=== PATIENT | female | born 1985 | race Two or more races ===

== ENCOUNTER 2019-11-13 12:09 | Emergency (ER) | payer MEDICAID ==
[~2019-11-13] VITALS: Ht 157.5 cm; Wt 86.6 kg
--- NOTE | 2019-11-13 12:26 | NUR ---
CAME IN FOR L EAR ACHE, HEAD FEELS "HOT." X 1 WEEK , TO ER BED 3, HOOKED TO MONITOR, WARM BLABKET PROVIDED, AWAITING MD DAVID
--- NOTE | 2019-11-13 12:38 | NUR ---
KIERA HASKINS AT BEDSIDE
--- NOTE | 2019-11-13 12:51 | NUR ---
URINE SAMPLE SENT TO LAB
[2019-11-13] MEDS ORDERED: ONDANSETRON 4 MG TAB.RAPDIS ONE (12:54)
[2019-11-13] MEDS ORDERED: ONDANSETRON 4 MG TAB.RAPDIS SL ONE (13:00)
[2019-11-13] MEDS ORDERED: KETOROLAC TROMETHAMINE INJ 60 MG/2 ML VIAL IM ONE (13:00)
[2019-11-13] MEDS ORDERED: KETOROLAC TROMETHAMINE INJ 30 MG/ML VIAL ONE (13:14)
--- NOTE | 2019-11-13 13:20 | NUR ---
Patient discharged to home in stable condition. Written and verbal after care instructions given. Patient verbalizes understanding of instruction.
[2019-11-13 13:32] VITALS: BP 138/68
== END 2019-11-13 13:33 | disposition home or self-care (01) ==
LOC: ER 12:09
DX: F28 Other psychotic disorder not due to a substance or known physiological condition (principal)
CPT/HCPCS: 84703; 96372; 99284; J1885; Q0162

== ENCOUNTER 2020-03-28 14:48 | Emergency (ER) | payer MEDICAID ==
[~2020-03-28] VITALS: Ht 152.4 cm; Wt 83.9 kg
[2020-03-28] MEDS ORDERED: ONDANSETRON HCL/PF 4 MG/2 ML VIAL ONE ×2 (15:23→17:40)
--- NOTE | 2020-03-28 15:28 | NUR ---
BIBS TO ER BED 7. AAOX4. NOT IN RESP DISTRESS. AMBULATORY. CAME IN FOR LLQ ABDOMINAL PAIN STARTED TODAY. PT ALSO REPORTS SHE IS NAUSEOUS. WAS AT [facility] BEDSIDE FOR EVAL. ORDERS RECEIVED NOTED AND CARRIED OUT
[2020-03-28 15:29] LABS: BASOPHILS # (AUTO) 0.1 /CMM (0.0-0.2); BASOPHILS % (AUTO) 0.6 % (0.0-2.0); EOSINOPHILS % (AUTO) 0.6 % (0.0-6.0); HEMATOCRIT 41 % (33-45); HEMOGLOBIN 13.8 g/dL (11.5-14.8); LYMPHOCYTES # (AUTO) 2.6 /CMM (0.8-4.8); LYMPHOCYTES % (AUTO) 19.5 % (20.0-44.0); MEAN CORPUSCULAR HGB CONC 34 g/dl (31.0-36.0); MEAN CORPUSCULAR VOLUME 90 fL (82-100); MONOCYTES # (AUTO) 1.1 /CMM (0.1-1.30); MONOCYTES % (AUTO) 8.7 % (2.0-12.0); NEUTROPHILS # (AUTO) 9.3 /CMM (1.8-8.9); NEUTROPHILS % (AUTO) 70.6 % (43.0-81.0); PLATELET COUNT (AUTO) 375 /CMM (150-450); RED BLOOD CELL COUNT(AUTO) 4.57 MIL/uL (4.0-5.2); WHITE BLOOD COUNT (AUTO) 13.1 K/uL (4.3-11.0)
[2020-03-28] MEDS ORDERED: ONDANSETRON HCL/PF 4 MG/2 ML VIAL IV ONE (15:30)
[2020-03-28 15:39] LABS: POTASSIUM 3.7 mmol/L (3.5-5.1)
[2020-03-28 15:52] LABS: BILIRUBIN,DIRECT 0.2 mg/dL (0.0-0.2); BILIRUBIN,TOTAL 0.6 mg/dL (0.2-1.0); TOTAL PROTEIN, SERUM 8.5 g/dL (6.4-8.2)
[2020-03-28 16:47] LABS: BILIRUBIN,URINE Negative (NEGATIVE); BLOOD, URINE Moderate Ery/uL (NEGATIVE); COLOR,URINE Yellow (YELLOW); KETONES,URINE Negative (NEGATIVE); LEUKOCYTE ESTERASE ,URINE Trace (NEGATIVE); NITRITE, URINE Negative (NEGATIVE); PH,URINE 7.5 (5.0-8.0); PROTEIN,URINE Negative (NEGATIVE); UGLUCOSE Negative (NEGATIVE)
[2020-03-28 16:51] LABS: APPEARANCE,URINE SLIGHTLY CLOUDY (CLEAR)
[2020-03-28 16:54] LABS: BACTERIA,URINE Few /HPF (None Seen); SQUAMOUS EPITHELIAL CELL,UR Few /HPF (None Seen)
[2020-03-28] MEDS ORDERED: KETOROLAC TROMETHAMINE 15 MG/ML VIAL ONE (17:00)
[2020-03-28] MEDS: KETOROLAC TROMETHAMINE INJ 30 MG/ML VIAL IV ONE ×2 (17:11→17:42)
--- NOTE | 2020-03-28 17:11 | NUR ---
pt refused medication. pt states that she is no longer having pain
[2020-03-28] MEDS ORDERED: CEFTRIAXONE 1 G in IV D5W 50 ML IV ONE (17:30)
--- NOTE | 2020-03-28 17:46 | NUR ---
PT VOMMITED X 1 AND NAUSEOUS. MADE AWARE. RECEIVED ORDER TO GIVE ZOFRAN 4MG IV X 1 DOSE. NOTED AND CARRIED OUT
--- NOTE | 2020-03-28 17:47 | NUR ---
PT WANTED TO TAKE THE PAIN MEDICATION, TORADOL 15MG. MEDICATION GIVEN ORDERED.
[2020-03-28] MEDS ORDERED: ONDANSETRON HCL/PF - ER 4 MG/2 ML VIAL IV ONE (18:00)
--- NOTE | 2020-03-28 18:28 | NUR ---
Patient discharged to home in stable condition. Written and verbal after care instructions given. Patient verbalizes understanding of instruction.IV removed. Catheter intact and site benign. Pressure and 4x4 applied to site. No bleeding noted. Pt ambulatory with a steady gait
[2020-03-28 18:29] VITALS: BP 121/72
== END 2020-03-28 18:29 | disposition home or self-care (01) ==
LOC: ER 14:51
DX: N39.0 Urinary tract infection, site not specified (principal); Z98.890 Other specified postprocedural states
CPT/HCPCS: 36415; 80048; 80076; 81001; 83690; 84702; 85025; 87086; 96374; 96375; 96376; 99284; J0696; J1885; J2405 ×3; J7060; 81000-TC

== ENCOUNTER 2020-03-29 06:40 | Emergency (ER) | payer MEDICAID ==
[~2020-03-29] VITALS: Ht 157.5 cm; Wt 83.9 kg
--- NOTE | 2020-03-29 06:52 | NUR ---
BIBS FOR C/O HEARING VOICESX 2 MOS. PER PT VOICES ARE TELLING HER THAT HER BRAIN IS NOT GOOD. PT DENIED SI/HI AT THIS TIME, PT TO BED 12; PT ALERT, DENIES SOB, -CP, VSS, NAD NOTED. PENDING ER PROVIDER JOANN
--- NOTE | 2020-03-29 07:10 | NUR ---
REPORT GIVEN TO YADIEL HENDRICKSON FOR KEN
--- NOTE | 2020-03-29 07:26 | NUR ---
URINE SAMPLE COLLECTED AND SENT TO LAB
[2020-03-29 07:35] LABS: BASOPHILS % (AUTO) 0.4 % (0.0-2.0); EOSINOPHILS % (AUTO) 0.5 % (0.0-6.0); HEMATOCRIT 41 % (33-45); HEMOGLOBIN 13.6 g/dL (11.5-14.8); LYMPHOCYTES # (AUTO) 2.3 /CMM (0.8-4.8); LYMPHOCYTES % (AUTO) 24.7 % (20.0-44.0); MEAN CORPUSCULAR HGB CONC 34 g/dl (31.0-36.0); MEAN CORPUSCULAR VOLUME 90 fL (82-100); MONOCYTES # (AUTO) 0.5 /CMM (0.1-1.30); MONOCYTES % (AUTO) 5.9 % (2.0-12.0); NEUTROPHILS # (AUTO) 6.2 /CMM (1.8-8.9); NEUTROPHILS % (AUTO) 68.5 % (43.0-81.0); PLATELET COUNT (AUTO) 365 /CMM (150-450); RED BLOOD CELL COUNT(AUTO) 4.49 MIL/uL (4.0-5.2); WHITE BLOOD COUNT (AUTO) 9.1 K/uL (4.3-11.0)
[2020-03-29 07:44] LABS: CARBON DIOXIDE 26 mmol/L (21-32); CHLORIDE 105 mmol/L (98-107); CREATININE 0.9 mg/dL (0.6-1.3); GLUCOSE 113 mg/dL (74-106); POTASSIUM 3.8 mmol/L (3.5-5.1); SODIUM SERUM 140 mmol/L (136-145); UREA NITROGEN, BLOOD 11 mg/dL (7-18)
[2020-03-29 07:50] LABS: ALANINE AMINOTRANSFERASE 89 U/L (12-78); ALCOHOL, BLOOD < 3 mg/dL (0-0); ALKALINE PHOSPHATASE 84 U/L (46-116); ASPARTATE AMINOTRANSFERASE 36 U/L (15-37); BILIRUBIN,DIRECT 0.2 mg/dL (0.0-0.2); BILIRUBIN,TOTAL 0.8 mg/dL (0.2-1.0); SALICYLATE < 0.2 mg/dL (2.8-20.0); TOTAL PROTEIN, SERUM 8.1 g/dL (6.4-8.2)
[2020-03-29 07:50] LABS: APPEARANCE,URINE Clear (CLEAR); BILIRUBIN,URINE SMALL (NEGATIVE); BLOOD, URINE Small Ery/uL (NEGATIVE); COLOR,URINE Yellow (YELLOW); KETONES,URINE Negative (NEGATIVE); LEUKOCYTE ESTERASE ,URINE Trace (NEGATIVE); NITRITE, URINE Negative (NEGATIVE); PROTEIN,URINE Negative (NEGATIVE); UGLUCOSE 100 MG/DL mg/dL (NEGATIVE); UROBILINOGEN,URINE 0.2 EU/dL (0.2)
[2020-03-29 07:51] LABS: BACTERIA,URINE Few /HPF (None Seen); SQUAMOUS EPITHELIAL CELL,UR Few /HPF (None Seen)
[2020-03-29 07:51] LABS: ACETAMINOPHEN 0 ug/ml (10-30)
--- NOTE | 2020-03-29 08:20 | NUR ---
AKIRA CONSULT: Pension Fund Manager conducted chart review and met with patient at bedside for social work consult to assess for suicidal ideation. Pt is Lebanese speaking; consult conducted in Lebanese at bedside. Pt was alert and oriented X4. Per MD note, "Patient is a 34-year-old female with no reported psychiatric history, recent diagnosis of UTI status post antibiotics, currently presenting to the ER endorsing that she has been hearing voices. She stated to me that she has been hearing voices for the past 3 days, but she endorsed 2 months of voices to triage. States that the voices tell her that her brain is not good and that she needs a psychiatrist. Denies being commanded to do anything unsafe. Denies SI/HI." Pt reported she resides with her spouse and her children in [place]. Pt reported her spouse and sister and her main supports and help her care for her children. Pt reported she has been experiencing auditory hallucinations telling her she is "having a stroke," and advising her to "get help." Pt denied any psychiatric diagnosis and reported she does not take any psychotropic medications. Pt denied suicidal and homicidal ideation. Pt declined voluntary psychiatric placement, but agreed to community mental health resources. Pension Fund Manager provided Behavioral Health and Substance Abuse Referrals to the pt. Pt reported she would like to discharge home with her , and would visit [facility] for a psychiatric evaluation. beam worker provided active listening, supportive counseling, and validation of feelings. Charge nurse updated regarding pt's discharge plan.
--- NOTE | 2020-03-29 08:31 | NUR ---
AKIRA GALO AT BEDSIDE
--- NOTE | 2020-03-29 08:37 | NUR ---
PER AKIRA GALO, PATIENT DENIES SI/SI, PATIENT WILL BE PICKED UP BY ONCE MEDICALLY CLEARED BY MD.
--- NOTE | 2020-03-29 09:10 | NUR ---
Patient discharged to home in stable condition. Patient picked up by in the waiting room. Written and verbal after care instructions given. Patient verbalizes understanding of instruction.
[2020-03-29 09:14] VITALS: BP 121/81
== END 2020-03-29 09:10 | disposition home or self-care (01) ==
LOC: ER 06:40
DX: R44.0 Auditory hallucinations (principal)
CPT/HCPCS: 36415; 80048; 80076; 80305; 80307; 80329; 81001; 84703; 85025; 99283; G0480; 81000-TC